=== PATIENT | male | born 1965 | race Caucasian/White ===

== ENCOUNTER 2019-07-22 07:05 | Day surgery (SDC) | payer BC ==
[2019-07-22] MEDS ORDERED: fentaNYL 100 MCG/2 ML SDV ONE (07:18)
[2019-07-22] MEDS ORDERED: Midazolam 1 MG/ML 2 ML SDV ONE (07:18)
[2019-07-22] MEDS ORDERED: Propofol 200 MG/20 ML SDV ONE (07:18)
[2019-07-22] MEDS ORDERED: Lactated Ringers 1,000 ML IV ONE (07:30)
[2019-07-22] MEDS ORDERED: Cyanocobalamin (Vitamin B12) 1,000 MCG/ML SDV IM ONE (07:30)
[2019-07-22] MEDS ORDERED: Pantoprazole 40 MG Vial IVPUSH ONE (09:26)
[2019-07-22] MEDS ORDERED: MVI, Adult with Vitamin K 10 ML, Thiamine 200 MG, Chromium/Copper/Mang/Selen/Zn 1 ML in... IV ONE ×4 (09:30)
[2019-07-22] MEDS ORDERED: Glycopyrrolate 0.2 MG/ML 2 ML SDV IVPUSH ONE (09:30)
[2019-07-22 10:54] VITALS: BP 119/71; PULSE 60
--- NOTE | 2019-07-27 13:11 | OR ---
DATE OF PROCEDURE: 07/22/2019 SURGEON: Jozef Alford MD PREOPERATIVE DIAGNOSIS: Probable ongoing gastroesophageal reflux disease. POSTOPERATIVE DIAGNOSES: Recurrent hiatal hernia with moderate gastroesophageal reflux disease. OPERATIVE PROCEDURE: Esophagogastroduodenoscopy with biopsy of esophagogastric junction. ANESTHESIA: IV sedation. INDICATION FOR PROCEDURE: This is a 54-year-old status post duodenal switch in 2016, presenting with some ongoing symptoms suggestive of gastroesophageal reflux disease. He had been intermittently having some omeprazole earlier. He was given prescription last week for some Protonix, but has not started that as of yet. The plan is to proceed with upper GI endoscopy with biopsies as indicated. Potential risks including bleeding and perforation were discussed, and the patient wishes to proceed. DETAILS OF PROCEDURE: The patient was taken to the operating room and placed in a left lateral decubitus position. IV sedation was administered, after which the upper GI endoscope was passed orally through the length of the esophagus and into the stomach, thereafter it was passed through the pyloric channel and up somewhat proximally and distally in the ileum, beyond the duodenal ileostomy. Findings included normal hypopharynx, larynx, and upper esophageal sphincter. At the EG junction, the patient was noted to have some friability and redness consistent with some ongoing gastroesophageal reflux disease. There did appear to be some element of a recurrent diaphragmatic hernia with, upon respirations, the EG junction rising and falling over what appeared to be the shelf of the diaphragm up to around 2 to 3 cm above the diaphragmatic imprint on inhalation. In the stomach, there was a small amount of retained slightly bilious material within the stomach, but otherwise that was unremarkable as was the pyloric channel and duodenal ileostomy area. At this point, biopsies were obtained from the esophagogastric junction and sent for histologic evaluation. Minimal bleeding from the biopsy site was seen, and the procedure then concluded. The plan will be to give the patient Protonix 40 mg IV in the recovery room and, at that point, we will have him start his oral Protonix, which was prescribed last week. We will see the patient back in [facility] on 08/13/2019, to see how the medical management is working. If that fails, then operative repair of the diaphragmatic hernia will be the next appropriate step. Jozef Alford MD /[id number]
== END 2019-07-22 11:20 | disposition home or self-care (01) ==
LOC: JP.SDS 07:05
PROVIDERS: ATTEND Surgery
DX: K21.9 Gastro-esophageal reflux disease without esophagitis (principal); K44.9 Diaphragmatic hernia without obstruction or gangrene; K90.9 Intestinal malabsorption, unspecified; I10 Essential (primary) hypertension; E78.5 Hyperlipidemia, unspecified; E11.9 Type 2 diabetes mellitus without complications; E66.9 Obesity, unspecified; Z68.30 Body mass index [BMI] 30.0-30.9, adult
CPT/HCPCS: 43239; 88305; C9113; J2250; J2704; J3010; J3411; J3420; J3490; J7120